=== PATIENT | male | born 1950 | race Caucasian/White ===

== ENCOUNTER 2020-10-19 04:59 | Inpatient (IN) | payer MEDICARE ==
[~2020-10-19] VITALS: Ht 172.7 cm; Wt 83.9 kg
[~2020-10-19 04:59] MED LIST: ALDACTONE 25MG25 MG PO; ALDACTONE25 MG PO; AMIODARONE HCL200 MG PO; ANTIVERT 12.512.5 MG PO; AUGMENTIN 875-1 EACH PO; CARVEDILOL3.125 MG PO; CLOPIDOGREL75 MG PO; COREG 12.5MG12.5 MG PO; COUMADIN1 MG PO; COUMADIN5 MG PO; CUBICIN IV; DOXYCYCLINE MO100 MG PO; ECOTRIN81 MG PO; ENTRESTO 24 MG1 EACH PO; FLAGYL500 MG PO; HUMALOG MI100 UNIT/2 SQ; HUMALOG100 UNIT/2 SC; HYDROCODON-ACE1 EAC6 PO; LANTUS100 UNIT/1 SQ; LEVAQUIN500 MG PO; LIPITOR TAB 2020 MG PO; LOVENOX80 MG/0.8 SC; MEXILETINE HCL200 MG PO; NEURONTIN PO; NORCO 10-325 T1 EACH PO; OMEPRAZOLE20 MG PO; OXYCODONE-ACET1 EACH PO; PLAVIX 75 MG TA75 MG PO; PROTONIX40 MG PO; TRULICITY1.5 MG/0.5 SQ; XANAX 0.25 MG0.25 MG PO; XARELTO2.5 MG PO; ZOFRAN4 MG PO; ZYVOX600 MG PO
[2020-10-19 06:35] LABS: HEMOGLOBIN 15.1 gm/dl (14.0-17.5); RED BLOOD COUNT 4.83 M/UL (4.20-5.50); WHITE BLOOD COUNT 8.1 K/UL (4.5-11.0)
[2020-10-19 07:01] LABS: BUN/CREATININE RATIO 13 (0-10)
[2020-10-19] MEDS ORDERED: XARELTO2.5 MG PO (18:15)
[2020-10-19] MEDS ORDERED: AMIODARONE HCL200 MG PO (18:15)
[2020-10-19] MEDS ORDERED: COREG 12.5MG12.5 MG PO (18:17)
[2020-10-20 05:18] LABS: BUN/CREATININE RATIO 17 (0-10)
[2020-10-20 05:34] LABS: HEMOGLOBIN 13.9 gm/dl (14.0-17.5); RED BLOOD COUNT 4.5 M/UL (4.20-5.50); WHITE BLOOD COUNT 7.2 K/UL (4.5-11.0)
--- NOTE | 2020-10-20 10:15 | NUR ---
PATIENT HAD BP OF 48/25 ON TOILET SEVERAL NURSES NEEDED TO GET HIM BACK TO BED. ONCE IN BED BP RETURNED TO WITH IN NORMAL LIMITS. PROVIDER WAS CALLED AND GAVE ORDER FOR 250 CC BOLUS OF NORMAL SALINE WITH FOLLOWING 500 CC TO RUN AT 150 MLS/HR.
[2020-10-21 04:11] LABS: HEMOGLOBIN 13.7 gm/dl (14.0-17.5); RED BLOOD COUNT 4.36 M/UL (4.20-5.50); WHITE BLOOD COUNT 6.4 K/UL (4.5-11.0)
[2020-10-21 04:31] LABS: BUN/CREATININE RATIO 13 (0-10)
[2020-10-23] MEDS ORDERED: METOPROLOL SUCC25 MG PO (12:06)
== END 2020-10-23 15:33 | disposition home or self-care (01) | DRG 74 ==
LOC: ER1 04:59 → CDU 09:55 → MED SURG 4 17:23
PROVIDERS: Family Medicine; Physician Assistant; ADMIT Internal Medicine
DX: E11.43 Type 2 diabetes mellitus with diabetic autonomic (poly)neuropathy (principal); E87.1 Hypo-osmolality and hyponatremia; I50.22 Chronic systolic (congestive) heart failure; Z20.822 Contact with and (suspected) exposure to COVID-19; I25.5 Ischemic cardiomyopathy; I25.10 Atherosclerotic heart disease of native coronary artery without angina pectoris; I08.1 Rheumatic disorders of both mitral and tricuspid valves; E11.65 Type 2 diabetes mellitus with hyperglycemia; I11.0 Hypertensive heart disease with heart failure; E11.51 Type 2 diabetes mellitus with diabetic peripheral angiopathy without gangrene; I27.20 Pulmonary hypertension, unspecified; E78.5 Hyperlipidemia, unspecified; Z98.62 Peripheral vascular angioplasty status; Z95.810 Presence of automatic (implantable) cardiac defibrillator; Z95.1 Presence of aortocoronary bypass graft; Z88.1 Allergy status to other antibiotic agents; Z79.01 Long term (current) use of anticoagulants; Z79.02 Long term (current) use of antithrombotics/antiplatelets; Z79.4 Long term (current) use of insulin; Z79.899 Other long term (current) drug therapy; Z87.891 Personal history of nicotine dependence; Z83.3 Family history of diabetes mellitus; Z84.1 Family history of disorders of kidney and ureter
CPT/HCPCS: 36415; 70450; 71045; 80048; 80053; 82550; 82553; 82962; 83874; 83880; 84439; 84443; 84484; 85025; 93005; 93880; 96374; 99285; G0378; J2405; J7030; U0002

== ENCOUNTER 2020-10-28 02:38 | Emergency (ER) | payer MEDICARE, OTHER ==
[~2020-10-28 02:38] MED LIST changes: +METOPROLOL SUCC25 MG PO
[2020-10-28 03:13] LABS: HEMOGLOBIN 15.1 gm/dl (14.0-17.5); RED BLOOD COUNT 4.89 M/UL (4.20-5.50); WHITE BLOOD COUNT 8.8 K/UL (4.5-11.0)
[2020-10-28 03:40] LABS: BUN/CREATININE RATIO 15 (0-10)
[2020-10-28] MEDS ORDERED: MECLIZINE HCL25 MG PO (04:47)
== END 2020-10-28 05:03 | disposition home or self-care (01) ==
LOC: ER1 02:38
PROVIDERS: Emergency Medicine
DX: I11.0 Hypertensive heart disease with heart failure (principal); I50.9 Heart failure, unspecified; R42 Dizziness and giddiness; I25.10 Atherosclerotic heart disease of native coronary artery without angina pectoris; E11.9 Type 2 diabetes mellitus without complications; Z95.0 Presence of cardiac pacemaker; Z88.1 Allergy status to other antibiotic agents; Z20.822 Contact with and (suspected) exposure to COVID-19
CPT/HCPCS: 70496; 70498; 71045; 80053; 82550; 82553; 83690; 83735; 83874; 83880; 84100; 84439; 84443; 84484; 85025; 85610; 85730; 87635; 93005; 96374; 96375; 99285; J1940; J2405; Q9967

== ENCOUNTER 2020-12-02 14:08 | Inpatient (IN) | payer MEDICARE, OTHER ==
[~2020-12-02] VITALS: Ht 172.7 cm; Wt 91.6 kg
[~2020-12-02 14:08] MED LIST changes: +MECLIZINE HCL25 MG PO
[2020-12-02 18:10] LABS: HEMOGLOBIN 13.6 gm/dl (14.0-17.5); RED BLOOD COUNT 4.3 M/UL (4.20-5.50); WHITE BLOOD COUNT 13.7 K/UL (4.5-11.0)
[2020-12-02 18:30] LABS: BUN/CREATININE RATIO 19 (0-10)
[2020-12-02] MEDS ORDERED: NEURONTIN600 MG PO (21:20)
[2020-12-02] MEDS ORDERED: MEXITIL CAP 20200 MG PO (21:23)
[2020-12-03 04:21] LABS: HEMOGLOBIN 13.4 gm/dl (14.0-17.5); RED BLOOD COUNT 4.3 M/UL (4.20-5.50); WHITE BLOOD COUNT 12.7 K/UL (4.5-11.0)
[2020-12-03 04:33] LABS: BUN/CREATININE RATIO 21 (0-10)
[2020-12-03 20:02] LABS: ACINETOBACTER BAUMANNII Not Detected (Negative); CANDIDA ALBICANS Not Detected (Negative); CANDIDA KRUSEI Not Detected (Negative); CANDIDA TROPICALIS Not Detected (Negative); ENTEROCOCCUS Not Detected (Negative); ESCHERICHIA COLI Not Detected (Negative); HAEMOPHILUS INFLUENZAE Not Detected (Negative); KLEBSIELLA OXYTOCA Not Detected (Negative); KLEBSIELLA PNEUMONIAE Not Detected (Negative); KPC-CARBAPENEM-RESISTANCE GENE Not Detected (Negative); PROTEUS Not Detected (Negative); PSEUDOMONAS AERUGINOSA Not Detected (Negative); SERRATIA MARCESANS Not Detected (Negative); STAPHYLOCOCCUS AUREUS Not Detected (Negative); STREP AGALACTIAE (GROUP B) Not Detected (Negative); STREP PYOGENES (GROUP A) Not Detected (Negative); STREPTOCOCCUS Not Detected (Negative); mecA (METHICILLIN RESIST GENE Not Detected (Negative); vanA/B (VANCOMYCIN RESIST GENE Not Detected (Negative)
[2020-12-03 20:05] LABS: STAPHYLOCOCCUS DETECTED (Negative)
[2020-12-04 09:26] LABS: RED BLOOD COUNT 4.13 M/UL (4.20-5.50)
[2020-12-04 09:47] LABS: BUN/CREATININE RATIO 16 (0-10)
[2020-12-05 03:23] LABS: HEMOGLOBIN 11.9 gm/dl (14.0-17.5); RED BLOOD COUNT 3.85 M/UL (4.20-5.50); WHITE BLOOD COUNT 11.1 K/UL (4.5-11.0)
[2020-12-05 04:16] LABS: BUN/CREATININE RATIO 19 (0-10)
[2020-12-06 05:49] LABS: HEMOGLOBIN 11.2 gm/dl (14.0-17.5); RED BLOOD COUNT 3.62 M/UL (4.20-5.50); WHITE BLOOD COUNT 9.1 K/UL (4.5-11.0)
[2020-12-06] MEDS ORDERED: BACTRIM DS TAB1 EACH PO (10:40)
[2020-12-06] MEDS ORDERED: HYDROCODON-ACE1 EAC6 PO (11:32)
== END 2020-12-06 12:28 | disposition home or self-care (01) | DRG 603 ==
LOC: ER1 14:08 → MED SURG 4 19:18 → CDU 19:18 → MED SURG 4 23:48
PROVIDERS: Emergency Medicine; Internal Medicine; Surgery; ADMIT Internal Medicine
PROC: 0J9H0ZX Drainage of Left Lower Arm Subcutaneous Tissue and Fascia, Open Approach, Diagnostic (ICD-10-PCS; principal; 2020-12-04 10:00)
DX: L03.114 Cellulitis of left upper limb (principal); I50.22 Chronic systolic (congestive) heart failure; B95.61 Methicillin susceptible Staphylococcus aureus infection as the cause of diseases classified elsewhere; L02.414 Cutaneous abscess of left upper limb; Z88.1 Allergy status to other antibiotic agents; Z20.822 Contact with and (suspected) exposure to COVID-19; E11.65 Type 2 diabetes mellitus with hyperglycemia; I25.10 Atherosclerotic heart disease of native coronary artery without angina pectoris; I11.0 Hypertensive heart disease with heart failure; E11.40 Type 2 diabetes mellitus with diabetic neuropathy, unspecified; I48.91 Unspecified atrial fibrillation; E78.5 Hyperlipidemia, unspecified; I27.20 Pulmonary hypertension, unspecified; E11.51 Type 2 diabetes mellitus with diabetic peripheral angiopathy without gangrene; I08.1 Rheumatic disorders of both mitral and tricuspid valves; I25.5 Ischemic cardiomyopathy; Z95.1 Presence of aortocoronary bypass graft; Z79.899 Other long term (current) drug therapy; Z79.01 Long term (current) use of anticoagulants; Z87.891 Personal history of nicotine dependence; Z89.421 Acquired absence of other right toe(s); Z89.411 Acquired absence of right great toe; Z79.4 Long term (current) use of insulin; Z95.810 Presence of automatic (implantable) cardiac defibrillator; Z95.820 Peripheral vascular angioplasty status with implants and grafts; Z84.1 Family history of disorders of kidney and ureter
CPT/HCPCS: 36415; 73090; 73201; 80048; 80053; 82550; 82553; 82962; 83605; 83735; 83874; 84484; 85025; 85027; 85610; 85652; 86140; 87040; 87070; 87077; 87150; 87186; 87205; 87635; 93005; 93925; 96365; 96367; 96372; 96375; 99285; G0378; J0878; J2001; J2020; J2270; J2405; J2543; J2704; J3010; J7120; Q9967

== ENCOUNTER 2020-12-09 15:54 | Emergency (ER) | payer MEDICARE ==
[~2020-12-09 15:54] MED LIST changes: +BACTRIM DS TAB1 EACH PO; +MEXITIL CAP 20200 MG PO; +NEURONTIN600 MG PO
[2020-12-09 19:38] LABS: HEMOGLOBIN 13.3 gm/dl (14.0-17.5); RED BLOOD COUNT 4.25 M/UL (4.20-5.50); WHITE BLOOD COUNT 8.6 K/UL (4.5-11.0)
[2020-12-09 19:59] LABS: BUN/CREATININE RATIO 15 (0-10)
== END 2020-12-09 22:37 | disposition home or self-care (01) ==
LOC: ER1 15:54
PROVIDERS: Physician Assistant
DX: L02.414 Cutaneous abscess of left upper limb (principal); I25.10 Atherosclerotic heart disease of native coronary artery without angina pectoris; E11.9 Type 2 diabetes mellitus without complications; I10 Essential (primary) hypertension; Z95.1 Presence of aortocoronary bypass graft; Z88.1 Allergy status to other antibiotic agents
CPT/HCPCS: 36415; 73201; 80053; 82962; 83605; 85025; 87040; 96365; 96375; 99284; J2270; J2405; J7030; Q9967

== ENCOUNTER 2020-12-10 16:20 | Inpatient (IN) | payer MEDICARE, OTHER ==
[~2020-12-10] VITALS: Ht 175.3 cm; Wt 80.7 kg
[2020-12-10 17:04] LABS: HEMOGLOBIN 13.3 gm/dl (14.0-17.5); RED BLOOD COUNT 4.26 M/UL (4.20-5.50)
[2020-12-10 17:38] LABS: BUN/CREATININE RATIO 18 (0-10)
[2020-12-11 07:51] LABS: HEMOGLOBIN 12.8 gm/dl (14.0-17.5); RED BLOOD COUNT 4.2 M/UL (4.20-5.50); WHITE BLOOD COUNT 8.9 K/UL (4.5-11.0)
[2020-12-11 08:42] LABS: BUN/CREATININE RATIO 16 (0-10)
--- NOTE | 2020-12-11 12:38 | NUR ---
PATIENT BACK TO FLOOR AFTER SURGERY. PATIENT IS ALERT AND VERBAL, SURGERY VITALS STARTED AND FIRST SET WITHIN NORMAL LIMITS. PATIENT HAS DRESSING TO LEFT ARM FROM ABOVE ELBOW TO WRIST AREA, CLEAN DRY AND IN TACT. KERLIX, ELISSA WRAP, AND COBAN NOTED. CAPILLARY REFILL TO LEFT FINGERS WITHIN NORMAL LIMITS, LESS THAN 3 SECONDS. WILL MONITOR.
[2020-12-12 04:10] LABS: BUN/CREATININE RATIO 19 (0-10)
[2020-12-12 04:18] LABS: HEMOGLOBIN 11.2 gm/dl (14.0-17.5); WHITE BLOOD COUNT 10.3 K/UL (4.5-11.0)
[2020-12-12 04:20] LABS: RED BLOOD COUNT 3.68 M/UL (4.20-5.50)
--- NOTE | 2020-12-12 14:35 | NUR ---
DRESSING CHANGE PERFORMED PER PER DR. TURNER INSTRUCTIONS. PATIENT TOLERATED WELL.
--- NOTE | 2020-12-12 15:52 | NUR ---
NOTIFIED DR. TURNER AND DR. THOMASON OF EXCESSIVE BLEEDING FROM PATIENT'S SURGICAL SITE. PATIENT'S DRESSING HAD TO BE REINFORCED THREE TIMES TODAY WITH USE OF MULTIPLE ABD PADS, ELISSA WRAP, SAHARA WRAP, AND COBAN. EXTREMITY IS ELEVATED. NO FURTHER INSTRUCTIONS OR ORDERS WERE GIVEN AT THIS TIME.
[2020-12-13 07:31] LABS: HEMOGLOBIN 9.5 gm/dl (14.0-17.5)
[2020-12-13 07:35] LABS: RED BLOOD COUNT 3.05 M/UL (4.20-5.50)
--- NOTE | 2020-12-13 10:43 | NUR ---
PATIENT ASKED FOR PAIN MEDICATION TO BE INCREASED. CALLED HE ORDERED HYDROCODONE 5MG/325 Q 6 HRS PRN.
[2020-12-13 15:59] LABS: HEMOGLOBIN 8.3 gm/dl (14.0-17.5); WHITE BLOOD COUNT 8.8 K/UL (4.5-11.0)
[2020-12-13 16:00] LABS: RED BLOOD COUNT 2.61 M/UL (4.20-5.50)
[2020-12-14 03:18] LABS: HEMOGLOBIN 9.5 gm/dl (14.0-17.5); WHITE BLOOD COUNT 9.6 K/UL (4.5-11.0)
[2020-12-14 03:28] LABS: RED BLOOD COUNT 3.09 M/UL (4.20-5.50)
== END 2020-12-15 16:41 | disposition home health service (06) | DRG 603 ==
LOC: ER1 16:20 → M/S 17:33 → CDU 17:33 → M/S 19:11
PROVIDERS: Physician Assistant; Surgery; ADMIT Internal Medicine
PROC: 0J9H0ZX Drainage of Left Lower Arm Subcutaneous Tissue and Fascia, Open Approach, Diagnostic (ICD-10-PCS; principal; 2020-12-11 09:15)
DX: L02.414 Cutaneous abscess of left upper limb (principal); I13.0 Hypertensive heart and chronic kidney disease with heart failure and stage 1 through stage 4 chronic kidney disease, or unspecified chronic kidney disease; I50.20 Unspecified systolic (congestive) heart failure; E87.1 Hypo-osmolality and hyponatremia; D62 Acute posthemorrhagic anemia; I25.5 Ischemic cardiomyopathy; Z20.822 Contact with and (suspected) exposure to COVID-19; Z88.1 Allergy status to other antibiotic agents; L03.114 Cellulitis of left upper limb; B95.61 Methicillin susceptible Staphylococcus aureus infection as the cause of diseases classified elsewhere; I48.91 Unspecified atrial fibrillation; I25.10 Atherosclerotic heart disease of native coronary artery without angina pectoris; Z95.1 Presence of aortocoronary bypass graft; N18.9 Chronic kidney disease, unspecified; E11.22 Type 2 diabetes mellitus with diabetic chronic kidney disease; I73.9 Peripheral vascular disease, unspecified; Z79.899 Other long term (current) drug therapy; Z79.01 Long term (current) use of anticoagulants; I27.20 Pulmonary hypertension, unspecified
CPT/HCPCS: 36415; 73201; 80048; 80053; 82962; 83605; 85025; 85027; 85610; 85730; 86850; 86900; 86901; 86920; 87040; 87070; 87077; 87186; 87205; 93005; 96365; 96375; 97116-GP-CQ; 97161; 99284; J0690; J2001; J2250; J2270; J2405; J2704; J3010; J7030; J7120; Q9967; U0002

== ENCOUNTER 2020-12-18 07:54 | Emergency (ER) | payer MEDICARE ==
[2020-12-18 10:12] LABS: RED BLOOD COUNT 2.3 M/UL (4.20-5.50); WHITE BLOOD COUNT 9.7 K/UL (4.5-11.0)
[2020-12-18 10:13] LABS: HEMOGLOBIN 7.3 gm/dl (14.0-17.5)
[2020-12-18 10:25] LABS: BUN/CREATININE RATIO 16 (0-10)
== END 2020-12-18 20:07 | disposition home or self-care (01) ==
LOC: ER1 07:54
PROVIDERS: Physician Assistant Medical
DX: L76.22 Postprocedural hemorrhage of skin and subcutaneous tissue following other procedure (principal); Z79.01 Long term (current) use of anticoagulants; Z20.822 Contact with and (suspected) exposure to COVID-19; I48.91 Unspecified atrial fibrillation; E78.5 Hyperlipidemia, unspecified; I10 Essential (primary) hypertension; Z95.1 Presence of aortocoronary bypass graft; Z88.1 Allergy status to other antibiotic agents; Z79.4 Long term (current) use of insulin; Z95.0 Presence of cardiac pacemaker
CPT/HCPCS: 36430; 80053; 85025; 85610; 85730; 86850; 86900; 86901; 86920; 96374; 96376; 99283; J3010; P9016; U0002

== ENCOUNTER → 2021-01-09 | Outpatient (CLI) | payer MEDICARE | LOC: EXRD 12-29 13:00 | DX: I73.9 Peripheral vascular disease, unspecified (principal); M25.40 Effusion, unspecified joint; Z98.890 Other specified postprocedural states | CPT/HCPCS: 93925 ==

== ENCOUNTER 2021-05-08 20:44 | Emergency (ER) | payer MEDICARE ==
[2021-05-08 21:41] LABS: HEMOGLOBIN 9.8 gm/dl (14.0-17.5); RED BLOOD COUNT 4.09 M/UL (4.20-5.50); WHITE BLOOD COUNT 6.5 K/UL (4.5-11.0)
[2021-05-08 22:25] LABS: BUN/CREATININE RATIO 18 (0-10)
[2021-05-09] MEDS ORDERED: LASIX40 MG PO (00:11)
== END 2021-05-09 00:49 | disposition home or self-care (01) ==
LOC: ER1 20:44
PROVIDERS: Physician Assistant
DX: I11.0 Hypertensive heart disease with heart failure (principal); I50.9 Heart failure, unspecified; K21.9 Gastro-esophageal reflux disease without esophagitis; I48.91 Unspecified atrial fibrillation; Z95.1 Presence of aortocoronary bypass graft; Z20.822 Contact with and (suspected) exposure to COVID-19
CPT/HCPCS: 0240U; 36600; 71045; 80053; 82550; 82553; 82803; 83874; 83880; 84484; 85025; 93005; 96374; 99285

== ENCOUNTER 2021-11-17 15:57 | Emergency (ER) | payer MEDICARE ==
[~2021-11-17 15:57] MED LIST changes: +LASIX40 MG PO
[2021-11-17 18:19] LABS: HEMOGLOBIN 14.1 gm/dl (14.0-17.5); RED BLOOD COUNT 5.15 M/UL (4.20-5.50); WHITE BLOOD COUNT 9.2 K/UL (4.5-11.0)
[2021-11-17] MEDS ORDERED: DOXYCYCLINE MO100 MG PO (21:00)
== END 2021-11-17 21:12 | disposition home or self-care (01) ==
LOC: ER1 15:57
PROVIDERS: Physician Assistant Medical
DX: E11.52 Type 2 diabetes mellitus with diabetic peripheral angiopathy with gangrene (principal); I96 Gangrene, not elsewhere classified; E11.65 Type 2 diabetes mellitus with hyperglycemia; Z79.82 Long term (current) use of aspirin; I25.2 Old myocardial infarction; Z79.4 Long term (current) use of insulin; Z88.1 Allergy status to other antibiotic agents; X58.XXXA Exposure to other specified factors, initial encounter
CPT/HCPCS: 73630; 80053; 85025; 85652; 86140; 93926; 99283

== ENCOUNTER 2021-12-03 18:59 | Emergency (ER) | payer MEDICARE ==
[2021-12-03 19:48] LABS: HEMOGLOBIN 12.6 gm/dl (14.0-17.5); RED BLOOD COUNT 4.64 M/UL (4.20-5.50); WHITE BLOOD COUNT 9.3 K/UL (4.5-11.0)
[2021-12-03 21:41] LABS: BUN/CREATININE RATIO 15 (0-10)
[2021-12-03] MEDS ORDERED: CULTURELLE1 EACH PO (22:33)
[2021-12-03] MEDS ORDERED: PHENERGAN 25 MG25 M1 PO (22:33)
[2021-12-03] MEDS ORDERED: LOPERAMIDE2 MG PO (22:33)
== END 2021-12-03 22:49 | disposition home or self-care (01) ==
LOC: ER1 18:59
PROVIDERS: Student in an Organized Health Care Education/Training Program
DX: E86.0 Dehydration (principal); R19.7 Diarrhea, unspecified; R11.10 Vomiting, unspecified; E11.9 Type 2 diabetes mellitus without complications; I11.9 Hypertensive heart disease without heart failure
CPT/HCPCS: 80048; 85025; 96372; 99284; J2405

== ENCOUNTER → 2022-02-01 | Outpatient (CLI) | payer MEDICARE ==
[~2022-02-01] MED LIST changes: +CULTURELLE1 EACH PO; +LOPERAMIDE2 MG PO; +PHENERGAN 25 MG25 M1 PO
== END ==
LOC: KOH-I 14:16
DX: M79.672 Pain in left foot (principal); M77.32 Calcaneal spur, left foot; Z89.422 Acquired absence of other left toe(s)
CPT/HCPCS: 73630

== ENCOUNTER 2022-04-01 12:02 | Inpatient (IN) | payer MEDICARE, MEDICAID ==
[~2022-04-01] VITALS: Ht 172.7 cm; Wt 95.7 kg
[2022-04-01] MEDS ORDERED: AMIODARONE HCL100 MG PO (19:33)
[2022-04-01] MEDS ORDERED: LEVOTHYROXINE50 MC1 PO (19:33)
[2022-04-01] MEDS ORDERED: ASPIRIN81 MG PO (19:34)
[2022-04-01] MEDS ORDERED: MEXILETINE HCL200 MG PO (19:34)
[2022-04-01] MEDS ORDERED: METOPROLOL SUCC25 MG PO (19:35)
[2022-04-01] MEDS ORDERED: OMEPRAZOLE20 M1 PO (19:35)
[2022-04-01] MEDS ORDERED: ATORVASTATIN CA80 MG PO (19:35)
[2022-04-01] MEDS ORDERED: GABAPENTIN600 MG PO (19:36)
[2022-04-01] MEDS ORDERED: HYDROCODON-ACE1 EAC6 PO (19:37)
[2022-04-01] MEDS ORDERED: LASIX 40 MG TAB40 MG PO (19:38)
[2022-04-01] MEDS ORDERED: EFFER-K 20 MEQ20 MEQ PO (19:39)
[2022-04-01] MEDS ORDERED: NOVOLOG 10100 UNITS/ INJ (19:40)
[2022-04-01] MEDS ORDERED: LANTUS100 UNIT/1 SQ (19:40)
[2022-04-02 04:38] LABS: HEMOGLOBIN 9.1 gm/dl (14.0-17.5); RED BLOOD COUNT 3.56 M/UL (4.20-5.50)
[2022-04-03 01:40] LABS: HEMOGLOBIN 9.3 gm/dl (14.0-17.5); RED BLOOD COUNT 3.65 M/UL (4.20-5.50); WHITE BLOOD COUNT 11.2 K/UL (4.5-11.0)
[2022-04-03 02:02] LABS: BUN/CREATININE RATIO 21 (0-10)
[2022-04-06 01:44] LABS: HEMOGLOBIN 8.9 gm/dl (14.0-17.5); RED BLOOD COUNT 3.5 M/UL (4.20-5.50)
[2022-04-06 01:52] LABS: WHITE BLOOD COUNT 8.1 K/UL (4.5-11.0)
[2022-04-07 06:22] LABS: HEMOGLOBIN 9.2 gm/dl (14.0-17.5); RED BLOOD COUNT 3.64 M/UL (4.20-5.50); WHITE BLOOD COUNT 9.8 K/UL (4.5-11.0)
[2022-04-08 07:08] LABS: HEMOGLOBIN 9.4 gm/dl (14.0-17.5); RED BLOOD COUNT 3.69 M/UL (4.20-5.50); WHITE BLOOD COUNT 8.4 K/UL (4.5-11.0)
[2022-04-08] MEDS ORDERED: LASIX 40 MG TAB40 MG PO ×2 (10:50→10:58)
[2022-04-09 08:16] LABS: HEMOGLOBIN 8.7 gm/dl (14.0-17.5); RED BLOOD COUNT 3.53 M/UL (4.20-5.50)
[2022-04-09] MEDS ORDERED: NEURONTIN300 MG PO (10:42)
[2022-04-09] MEDS ORDERED: HYDROCODON-ACE1 EAC4 PO (10:42)
[2022-04-09] MEDS ORDERED: FLOMAX 0.4 MG0.4 MG PO (10:42)
--- NOTE | 2022-04-09 14:10 | NUR ---
[facility] notified by Case Management and floor nurse regarding transport to [facility]. Transport hasn't arrived. Called [facility] and spoke with Danielle who confirmed transport and would notify Carlos that transport hadn't arrived.
== END 2022-04-09 14:28 | DRG 689 ==
LOC: PROG CARE 18:44 → MED SURG 4 18:44
PROVIDERS: Internal Medicine; ADMIT Internal Medicine
DX: N39.0 Urinary tract infection, site not specified (principal); G93.41 Metabolic encephalopathy; N17.9 Acute kidney failure, unspecified; G72.81 Critical illness myopathy; I13.0 Hypertensive heart and chronic kidney disease with heart failure and stage 1 through stage 4 chronic kidney disease, or unspecified chronic kidney disease; I25.10 Atherosclerotic heart disease of native coronary artery without angina pectoris; E11.40 Type 2 diabetes mellitus with diabetic neuropathy, unspecified; E11.51 Type 2 diabetes mellitus with diabetic peripheral angiopathy without gangrene; I73.9 Peripheral vascular disease, unspecified; E66.9 Obesity, unspecified; E87.6 Hypokalemia; E11.22 Type 2 diabetes mellitus with diabetic chronic kidney disease; I50.9 Heart failure, unspecified; R53.81 Other malaise; R41.0 Disorientation, unspecified; N18.30 Chronic kidney disease, stage 3 unspecified; Z95.1 Presence of aortocoronary bypass graft; Z79.01 Long term (current) use of anticoagulants; Z89.422 Acquired absence of other left toe(s); Z95.810 Presence of automatic (implantable) cardiac defibrillator; Z82.49 Family history of ischemic heart disease and other diseases of the circulatory system; Z81.8 Family history of other mental and behavioral disorders; Z79.899 Other long term (current) drug therapy; Z79.82 Long term (current) use of aspirin
CPT/HCPCS: 36415; 80048; 80053; 81001; 82140; 82550; 82553; 82607; 82746; 82962; 83036; 83921; 84100; 84132; 84439; 84443; 84484; 85025; 85027; 86140; 87040; 87086; 93005; 94760; 97161; 97166; 97530; C9113; J1644; J2185; U0002

== ENCOUNTER 2022-05-17 16:40 | Inpatient (IN) | payer MEDICARE, MEDICAID ==
[~2022-05-17] VITALS: Ht 172.7 cm; Wt 83.9 kg
[~2022-05-17 16:40] MED LIST changes: +AMIODARONE HCL100 MG PO; +ASPIRIN81 MG PO; +ATORVASTATIN CA80 MG PO; +EFFER-K 20 MEQ20 MEQ PO; +FLOMAX 0.4 MG0.4 MG PO; +GABAPENTIN600 MG PO; +HYDROCODON-ACE1 EAC4 PO; +LASIX 40 MG TAB40 MG PO; +LEVEMIR FL100 UNIT/1 SQ; +LEVOTHYROXINE50 MC1 PO; +NEURONTIN300 MG PO; +NOVOLOG 10100 UNITS/ INJ; +OMEPRAZOLE20 M1 PO
[2022-05-17] MEDS ORDERED: HYDROCODON-ACE1 EAC6 PO (19:03)
[2022-05-17] MEDS ORDERED: POTASSIUM CHLO20 ME1 PO (19:04)
[2022-05-17] MEDS ORDERED: GABAPENTIN600 MG PO (19:06)
[2022-05-17] MEDS ORDERED: AMIODARONE HCL200 MG PO (19:07)
[2022-05-17 19:08] LABS: HEMOGLOBIN 10.7 gm/dl (14.0-17.5); RED BLOOD COUNT 4.07 M/UL (4.20-5.50); WHITE BLOOD COUNT 11.1 K/UL (4.5-11.0)
[2022-05-18 07:02] LABS: WHITE BLOOD COUNT 8.7 K/UL (4.5-11.0)
[2022-05-18 07:14] LABS: RED BLOOD COUNT 3.42 M/UL (4.20-5.50)
[2022-05-18 07:34] LABS: BUN/CREATININE RATIO 15 (0-10)
[2022-05-19 06:09] LABS: HEMOGLOBIN 9.8 gm/dl (14.0-17.5); RED BLOOD COUNT 3.74 M/UL (4.20-5.50); WHITE BLOOD COUNT 9.7 K/UL (4.5-11.0)
--- NOTE | 2022-05-19 17:40 | NUR ---
RIGHT GREAT TOE SALINE PACKED AND WRAPPED WITH A GAUZE ROLL, LEFT FOOT DAKINS PACKED, COVERED WITH 4X4 GAUZE, ROLL GAUZE AND SECURED WITH ELISSA WRAP. RIGHT SIDE NECK SALINE PACKED AND COVERED WITH GAUZE. PATIENT TOLERATED PROCEDURE WELL.
[2022-05-20 06:18] LABS: HEMOGLOBIN 8.8 gm/dl (14.0-17.5); WHITE BLOOD COUNT 8.5 K/UL (4.5-11.0)
[2022-05-20 06:21] LABS: RED BLOOD COUNT 3.33 M/UL (4.20-5.50)
[2022-05-21 07:12] LABS: RED BLOOD COUNT 3.46 M/UL (4.20-5.50); WHITE BLOOD COUNT 7.4 K/UL (4.5-11.0)
--- NOTE | 2022-05-21 14:06 | NUR ---
SPOKE WITH DR. XIAO REGARDING PT PICC LINE CONSULT ORDER, PER H&P CKD HISTORY WITH PROTEIN IN URINE FROM LAST ADMISSION ORDERS RECIEVED AND PLACED FOR LABS FROM DR. XIAO, DR. XIAO WISHES FOR PICC TO WAIT UNTIL HE SEES AND EVAULATES THE PT WILL CONTINUE TO FOLLOW
--- NOTE | 2022-05-21 16:53 | NUR ---
RIGHT GREAT TOE SALINE PACKED AND GAUZE WRAPPED AND RIGHT SIDE OF NECK SALINE PACKED AND COVERED WITH GAUZE, PATIENT TOLERATED WELL.
[2022-05-22 07:14] LABS: HEMOGLOBIN 8.8 gm/dl (14.0-17.5); RED BLOOD COUNT 3.41 M/UL (4.20-5.50)
[2022-05-22 07:15] LABS: WHITE BLOOD COUNT 10.4 K/UL (4.5-11.0)
[2022-05-22 09:13] LABS: CREATININE, URINE 13.4 mg/dL (Not Estab.)
--- NOTE | 2022-05-22 16:43 | NUR ---
PATIENTS DRESSING CHANGE TO THE LEFT FOOT COMPLETED USED ISLAND DRESSING PER DR ORDERS, NO WRAPS APPLIED. PATIENT TOLERATED WELL. NO BLEEDING NOTED.
--- NOTE | 2022-05-22 16:51 | NUR ---
RIGHT GREAT TOE SALING PACKED AND WRAPPED WITH GAUZE PATIENT TOLERATED WELL. ALSO CLEANED RIGHT SIDE OF NECK WITH SALINE AND COVERED WITH GAUZE. PATIENT TOLERATED IT WELL ALSO NO BLEEDING NOTED.
[2022-05-23 07:00] LABS: RED BLOOD COUNT 3.46 M/UL (4.20-5.50); WHITE BLOOD COUNT 9.4 K/UL (4.5-11.0)
[2022-05-23 10:10] LABS: COMPLEMENT C3, SERUM 157 mg/dL (82-167); COMPLEMENT C4, SERUM 39 mg/dL (12-38); HBSAG SCREEN Negative (Negative); HCV AB 0.2 (0.0-0.9); HEP A AB, IGM Negative (Negative); HEP B CORE AB, IGM Negative (Negative)
--- NOTE | 2022-05-23 13:17 | NUR ---
RIGHT GREAT TOE SALINE PACKED AND WRAPPED WITH GAUZE ROLL. LEFT FOOT CLEANED WITH NORMAL SALINE AND DAKINS COVERED WITH NON ADHERENT PADS AND ISLAND DRESSING. PATIENT TOLERATED PROCEDURE WELL.
--- NOTE | 2022-05-23 13:22 | NUR ---
CLEANED AREA ON THE NECK AND APPLIED BANDAID.
--- NOTE | 2022-05-24 03:32 | NUR ---
PATIENT WAS COMPLAINING OF INABILITY TO URINATE AND ONLY URINATING VERY SMALL AMOUNTS WITH EVERY TRIP TO THE BEDSIDE COMMODE. BLADDER SCAN READ >999ML,NOTIFIED PHYSICIAN AND PHYSICIAN ORDERED STRAIGHT CATH. STRAIGHT CATHETERIZATION PERFORMED, 1600 ML DARK YELLOW, CONCENTRATED URINE REMOVED FROM BLADDER THEN CATHETER REMOVED. PATIENT TOLERATED PROCEDURE WELL AND VERBALIZED IMMEDIATE RELIEF.
[2022-05-24 06:37] LABS: HEMOGLOBIN 10.4 gm/dl (14.0-17.5); WHITE BLOOD COUNT 11.4 K/UL (4.5-11.0)
[2022-05-24 06:39] LABS: RED BLOOD COUNT 3.93 M/UL (4.20-5.50)
[2022-05-24 14:11] LABS: A/G RATIO 0.6 (0.7-1.7); ALBUMIN 2.3 g/dL (2.9-4.4); ALPHA-1-GLOBULIN 0.4 g/dL (0.0-0.4); ALPHA-2-GLOBULIN 1.1 g/dL (0.4-1.0); GAMMA GLOBULIN 1.6 g/dL (0.4-1.8); IMMUNOGLOBULIN A, QN, SERUM 649 mg/dL (61-437); IMMUNOGLOBULIN G, QN, SERUM 1331 mg/dL (603-1613); IMMUNOGLOBULIN M, QN, SERUM 41 mg/dL (20-172); M-SPIKE Not Observed g/dL (Not Observed); PROTEIN, TOTAL, SERUM 6.3 g/dL (6.0-8.5)
[2022-05-24 15:11] LABS: ANTI-DSDNA ANTIBODIES <1 IU/mL (0-9)
[2022-05-25 05:00] LABS: HEMOGLOBIN 8.7 gm/dl (14.0-17.5); RED BLOOD COUNT 3.31 M/UL (4.20-5.50); WHITE BLOOD COUNT 10.5 K/UL (4.5-11.0)
[2022-05-25 19:11] LABS: ANTIMYELOPEROXIDASE (MPO) ABS <0.2 units (0.0-0.9); ANTIPROTEINASE 3 (PR-3) ABS 1.2 units (0.0-0.9); ATYPICAL PANCA <1:20 titer (Neg:<1:20); CYTOPLASMIC (C-ANCA) <1:20 titer (Neg:<1:20); PERINUCLEAR (P-ANCA) <1:20 titer (Neg:<1:20)
[2022-05-26 03:47] LABS: WHITE BLOOD COUNT 10.9 K/UL (4.5-11.0)
[2022-05-26 04:03] LABS: RED BLOOD COUNT 3.81 M/UL (4.20-5.50)
[2022-05-26] MEDS ORDERED: FERROUS SULFAT325 M2 PO (11:54)
[2022-05-26] MEDS ORDERED: CEFTRIAXONE1 GM INJ (11:54)
[2022-05-26] MEDS ORDERED: CUBICIN 500 MG500 MG INJ (11:54)
[2022-05-26] MEDS ORDERED: LANTUS INS100 UTS/M1 SC (11:54)
--- NOTE | 2022-05-26 14:12 | NUR ---
awaiting for admitting nurse to call for report. admitting nurse on her lunch
--- NOTE | 2022-05-26 14:34 | NUR ---
report given to admitting nurse Mirian, she requested to leave patient IV site. patient of not a high risk for any abuse of drug and will leav, patient skin fragile. wound care performed prior to d/c and will give pain med prior to d/c.
--- NOTE | 2022-05-26 14:42 | NUR ---
informed dr. lamb of leaving the IV access site per admitting nurse/facility request, stated its ok
== END 2022-05-26 15:05 | DRG 854 ==
LOC: M/S 16:40
PROVIDERS: Internal Medicine; Internal Medicine Nephrology; Podiatrist Foot & Ankle Surgery; ADMIT Internal Medicine
PROC: 0S9N3ZZ Drainage of Left Metatarsal-Phalangeal Joint, Percutaneous Approach (ICD-10-PCS; principal; 2022-05-21 07:45)
PROC: 0QBP0ZZ Excision of Left Metatarsal, Open Approach (ICD-10-PCS; principal; 2022-05-21 07:45)
PROC: 0JH60WZ Insertion of Totally Implantable Vascular Access Device into Chest Subcutaneous Tissue and Fascia, Open Approach (ICD-10-PCS; 2022-05-25)
PROC: 02HV33Z Insertion of Infusion Device into Superior Vena Cava, Percutaneous Approach (ICD-10-PCS; 2022-05-25)
PROC: B548ZZA Ultrasonography of Superior Vena Cava, Guidance (ICD-10-PCS; 2022-05-25)
DX: A41.9 Sepsis, unspecified organism (principal); E11.52 Type 2 diabetes mellitus with diabetic peripheral angiopathy with gangrene; M86.8X7 Other osteomyelitis, ankle and foot; Z20.822 Contact with and (suspected) exposure to COVID-19; I13.0 Hypertensive heart and chronic kidney disease with heart failure and stage 1 through stage 4 chronic kidney disease, or unspecified chronic kidney disease; I50.42 Chronic combined systolic (congestive) and diastolic (congestive) heart failure; N17.9 Acute kidney failure, unspecified; L02.611 Cutaneous abscess of right foot; E87.1 Hypo-osmolality and hyponatremia; N18.4 Chronic kidney disease, stage 4 (severe); K21.9 Gastro-esophageal reflux disease without esophagitis; B95.62 Methicillin resistant Staphylococcus aureus infection as the cause of diseases classified elsewhere; E11.69 Type 2 diabetes mellitus with other specified complication; E78.5 Hyperlipidemia, unspecified; D63.1 Anemia in chronic kidney disease; D50.9 Iron deficiency anemia, unspecified; E11.621 Type 2 diabetes mellitus with foot ulcer; E03.9 Hypothyroidism, unspecified; E11.22 Type 2 diabetes mellitus with diabetic chronic kidney disease; I25.10 Atherosclerotic heart disease of native coronary artery without angina pectoris; I25.5 Ischemic cardiomyopathy; Z79.4 Long term (current) use of insulin; Z95.810 Presence of automatic (implantable) cardiac defibrillator; Z79.82 Long term (current) use of aspirin; Z87.440 Personal history of urinary (tract) infections; Z88.1 Allergy status to other antibiotic agents; Z88.8 Allergy status to other drugs, medicaments and biological substances; Z82.0 Family history of epilepsy and other diseases of the nervous system; Z82.61 Family history of arthritis; Z83.3 Family history of diabetes mellitus; Z95.1 Presence of aortocoronary bypass graft; I25.2 Old myocardial infarction; Z91.14 Patient's other noncompliance with medication regimen
CPT/HCPCS: 36415; 71045; 73630; 73700; 77001; 80048; 80053; 80074; 81001; 82043; 82550; 82570; 82728; 82784; 82962; 83520; 83540; 83550; 83735; 83880; 84155; 84156; 84165; 85025; 85027; 85652; 86038; 86140; 86160; 86225; 86256; 86334; 87040; 87070; 87077; 87186; 87205; 93005; 93925; A6212; C1769; C1788; J0690; J0696; J0878; J1100; J1756; J2001; J2405; J2543; J2704; J3010; J3370; J7040; Q4133; U0002